=== PATIENT | male | born 1960 | race Native Hawaiian/Other Pacific Islander ===

== ENCOUNTER 2017-09-01 12:00 | Emergency (ER) | payer OTHER ==
[2017-09-01] MEDS ORDERED: TDAP Vaccine 0.5 mL Syr IM ONE (12:44)
[2017-09-01] MEDS ORDERED: Bacitracin Ointment 30 GM TUBE TOP STA (12:45)
[2017-09-01] MEDS ORDERED: Lidocaine 1% Inj (20ml) IJ STA (12:45)
[2017-09-01] MEDS ORDERED: Lidocaine 1% Inj (20ml) ONE (12:56)
--- NOTE | 2017-09-01 13:03 | ED PDOC ---
Arrival/HPI - General Chief Complaint: Abnormal Skin Integrity Time Seen by Provider: 09/01/17 12:44 Historian: Patient - History of Present Illness Narrative History of Present Illness (Text): 09/01/17 12:59 You were treated in the ED today for 3 cm laceration to inside of right proximal 3rd finger sustained from a knife otherwise without any fever, nausea/ vomiting/headache/dizziness/difficulty breathing/chest pain/abdomen pain/ numbness/tingling/loss of limb function/ loss of digit function/pain with urination or any other complaints. Time/Duration: Prior to Arrival Symptom Onset: Sudden Symptom Course: Unchanged Activities at Onset: Light Context: Home Past Medical History - Provider Review Nursing Documentation Reviewed: Yes - Infectious Disease Hx of Infectious Diseases: None - Cardiac Hx Cardiac Disorders: Yes (CAD STENTS ABN STRESS TEST) Hx Angina: Yes Hx Hypertension: Yes - Pulmonary Hx Respiratory Disorders: Yes Hx Asthma: Yes (CHILDHOOD) - Neurological Hx Neurological Disorder: No - HEENT Hx HEENT Disorder: No - Renal Hx Renal Disorder: No - Endocrine/Metabolic Hx Endocrine Disorders: No - Hematological/Oncological Hx Blood Disorders: No - Integumentary Hx Dermatological Disorder: No - Musculoskeletal/Rheumatological Hx Musculoskeletal Disorders: No - Gastrointestinal Hx Gastrointestinal Disorders: No - Genitourinary/Gynecological Hx Genitourinary Disorders: No - Psychiatric Hx Psychophysiologic Disorder: No Hx Substance Use: No - Surgical History Hx Cardiac Catheterization: Yes (2002) Hx Coronary Stent: Yes - Anesthesia Hx Anesthesia: Yes Hx Anesthesia Reactions: No Hx Malignant Hyperthermia: No Family/Social History - Physician Review Nursing Documentation Reviewed: Yes Family/Social History: No Known Family HX Smoking Status: Never Smoked Hx Alcohol Use: No Hx Substance Use: No Allergies/Home Meds Allergies/Adverse Reactions: Allergies No Known Allergies Allergy (Verified 01/06/15 14:22) Home Medications: Home Meds Medication Instructions Recorded Confirmed Amlodipine/Valsartan [Exforge 10 1 tab PO DAILY 01/06/15 01/06/15 mg-160 mg] Aspirin 81 mg PO DAILY 01/06/15 01/06/15 Metoprolol Succinate 100 mg PO DAILY 01/06/15 01/06/15 Simvastatin 20 mg PO DAILY 01/06/15 01/06/15 Review of Systems - Physician Review All systems were reviewed & negative as marked: Yes - Review of Systems Constitutional: Normal. absent: Fevers Eyes: Normal ENT: Normal Respiratory: Normal. absent: SOB Cardiovascular: Normal. absent: Chest Pain Gastrointestinal: Normal. absent: Abdominal Pain, Diarrhea, Nausea, Vomiting Genitourinary Male: Normal. absent: Dysuria Musculoskeletal: Normal Skin: Other (3 cm laceration to inside of right proximal finger to the muscle of 3rd digit) Neurological: Normal. absent: Headache, Dizziness Endocrine: Normal Hemo/Lymphatic: Normal Psychiatric: Normal Physical Exam Vital Signs Reviewed: Yes Vital Signs Temp Pulse Resp BP Pulse Ox 09/01/17 14:00 98.4 F 79 18 148/69 96 09/01/17 12:18 98.8 F 88 16 152/75 H 95 09/01/17 12:00 98.8 F 88 18 152/75 H 95 Temperature: Afebrile Blood Pressure: Hypertensive Pulse: Regular Respiratory Rate: Normal Appearance: Positive for: Well-Appearing, Non-Toxic, Comfortable Pain Distress: None Mental Status: Positive for: Alert and Oriented X 3 - Systems Exam Head: Present: Atraumatic, Normocephalic Pupils: Present: PERRL Extroacular Muscles: Present: EOMI Conjunctiva: Present: Normal Respiratory/Chest: Present: Clear to Auscultation, Good Air Exchange. No: Respiratory Distress, Accessory Muscle Use Cardiovascular: Present: Regular Rate and Rhythm, Normal S1, S2. No: Murmurs Abdomen: No: Tenderness, Distention, Peritoneal Signs Upper Extremity: Present: Normal Inspection, NORMAL PULSES, Other (3 cm laceration to inside of right proximal finger to the muscle of 3rd digit. Good, pink skin.). No: Cyanosis, Edema, Tenderness (no bony tenderness to 3rd digit) Lower Extremity: Present: Normal Inspection. No: Edema Neurological: Present: GCS=15, CN II-XII Intact, Speech Normal Skin: Present: Warm, Dry, Normal Color. No: Rashes Psychiatric: Present: Alert, Oriented x 3, Normal Insight, Normal Concentration Medical Decision Making ED Course and Treatment: 09/01/17 12:57 Impression: You were treated in the ED today for 3 cm laceration to inside of right proximal 3rd finger sustained from a glass but otherwise without any fever, nausea/vomiting/headache/dizziness/difficulty breathing/chest pain/abdomen pain/ numbness/tingling/loss of limb function/ loss of digit function/pain with urination or any other complaints. You were otherwise breathing easily, smiling at bedside, good strength/sensation, walking easily, clear lungs, no abdomen tenderness, right 3rd finger laceration medial aspect proximal finger laceration to muscle/4th finger shear type laceration distal fingertip adjacent to fingernail and neither with any bony tenderness and you had full range of motion/warm/sensation/good pink/good radial pulses, no fever temp 98.8, stable heart rate 88, stable breathing rate 16, excellent oxygen level 95% room air, elevated blood pressure 152/75 which we recommend repeat in 2-3 days primary care office to determine further treatment, tetanus booster given as you stated not current past 5 years you felt, right 3rd finger laceration medial aspect proximal finger laceration to muscle, antiseptically cleaned/wound explored without foreign body/suture skin closure/cleaned/bacitracin/splint and dressing placed. 4th finger shear type laceration distal fingertip adjacent to fingernail not amenable to suture as shear type and anti-septically cleaned, bacitracin, dressing, had a long discussion and you didn't want any xrays of the right hand/fingers at this time and cautioned for complications but you stated no pain/tenderness and no noted foreign body on injury and thus you wanted to go home. 1. Recommend keep wound dry for 2 days, then can open to air if dry, soap/water to wound daily but don't rub and place bacitracin ointment daily for infection control. 2. Recommend keflex as directed for infection control. 3. Recommend follow-up primary care 2 days to review symptoms, wound check and then 7-10 days for suture removal. 4. If any worsening pain, fever, chills, nausea, vomiting, difficulty breathing, numbness, loss of limb function , pain with urination or any medical condition then return to the ED. Plan: -- Bacitracin -- TDAP Vaccine -- Keflex -- Lidocaine 09/01/17 14:32 09/01/17 14:38 Reassessment Condition: Re-examined, Improved - Medication Orders Current Medication Orders: Discontinued Medications Bacitracin (Bacitracin) 0 gm TOP STAT STA Stop: 09/01/17 12:46 Last Admin: 09/01/17 13:20 Dose: 1 packet Cephalexin Monohydrate (Keflex) 500 mg PO STAT STA PRN Reason: Protocol Stop: 09/01/17 12:46 Last Admin: 09/01/17 13:20 Dose: 500 mg Lidocaine HCl (Lidocaine 1% (20ml)) 20 ml IJ STAT STA Stop: 09/01/17 12:46 Last Admin: 09/01/17 13:08 Dose: 1 bottle Tetanus/Reduced Diphtheria/Acell Pertussis (Boostrix Vaccine Inj) 0.5 ml IM .ONCE ONE Stop: 09/01/17 12:45 Last Admin: 09/01/17 13:18 Dose: 0.5 ml Immunization Registry Document 09/01/17 13:18 SRE (Rec: 09/01/17 13:19 SRE [id number]) Immunization Registry Consent Date 09/01/17 - Procedure PROCEDURE NOTE (Text): right 3rd finger laceration medial aspect proximal finger 4cm to muscle, irrigation nacl/betadine soaked/local anesthesia block/wound explored without foreign body/ethilon 4-0 x 5 interrupted skin closure, hemostasis, cleaned, bacitracin, splint and dressing placed. 4th finger shear type laceration distal fingertip adjacent to fingernail not amenable to suture as shear type and anti- septically cleaned, bacitracin, dressing. 09/01/17 14:29 - Scribe Statement The provider has reviewed the documentation as recorded by the Scribe Osei Dorsey. All medical record entries made by the Scribe were at my direction and personally dictated by me. I have reviewed the chart and agree that the record accurately reflects my personal performance of the history, physical exam, medical decision making, and the department course for this patient. I have also personally directed, reviewed, and agree with the discharge instructions and disposition. Disposition/Present on Arrival - Present on Arrival Any Indicators Present on Arrival: No History of DVT/PE: No History of Uncontrolled Diabetes: No Urinary Catheter: No History of Decub. Ulcer: No History Surgical Site Infection Following: None - Disposition Have Diagnosis and Disposition been Completed?: Yes Diagnosis: Finger laceration Disposition: HOME/ ROUTINE Disposition Time: 14:37 Patient Plan: Discharge Condition: IMPROVED Discharge Instructions (ExitCare): Laceration Repair With Stitches (DC) Additional Instructions: You were treated in the ED today for 3 cm laceration to inside of right proximal 3rd finger sustained from a glass but otherwise without any fever, nausea/vomiting/headache/dizziness/difficulty breathing/chest pain/abdomen pain/ numbness/tingling/loss of limb function/ loss of digit function/pain with urination or any other complaints. You were otherwise breathing easily, smiling at bedside, good strength/sensation, walking easily, clear lungs, no abdomen tenderness, right 3rd finger laceration medial aspect proximal finger laceration to muscle/4th finger shear type laceration distal fingertip adjacent to fingernail and neither with any bony tenderness and you had full range of motion/warm/sensation/good pink/good radial pulses, no fever temp 98.8, stable heart rate 88, stable breathing rate 16, excellent oxygen level 95% room air, elevated blood pressure 152/75 which we recommend repeat in 2-3 days primary care office to determine further treatment, tetanus booster given as you stated not current past 5 years you felt, right 3rd finger laceration medial aspect proximal finger laceration to muscle, antiseptically cleaned/wound explored without foreign body/suture skin closure/cleaned/bacitracin/splint and dressing placed. 4th finger shear type laceration distal fingertip adjacent to fingernail not amenable to suture as shear type and anti-septically cleaned, bacitracin, dressing, had a long discussion and you didn't want any xrays of the right hand/fingers at this time and cautioned for complications but you stated no pain/tenderness and no noted foreign body on injury and thus you wanted to go home. 1. Recommend keep wound dry for 2 days, then can open to air if dry, soap/water to wound daily but don't rub and place bacitracin ointment daily for infection control. 2. Recommend keflex as directed for infection control. 3. Recommend follow-up primary care 2 days to review symptoms, wound check and then 7-10 days for suture removal. 4. If any worsening pain, fever, chills, nausea, vomiting, difficulty breathing, numbness, loss of limb function , pain with urination or any medical condition then return to the ED. Prescriptions: Cephalexin [cephalexin] 250 mg PO Q6 3 Days #12 cap Forms: [facility] (Spanish), WORK NOTE
[2017-09-01 14:15] VITALS: RESP 18; O2SAT 96
[2017-09-01 14:50] VITALS: BP 140/70; PULSE 80; TEMP 98
== END 2017-09-01 14:49 | disposition home or self-care (01) ==
LOC: ED 12:00
DX: S61.212A Laceration without foreign body of right middle finger without damage to nail, initial encounter (principal); W26.0XXA Contact with knife, initial encounter; Z23 Encounter for immunization; I10 Essential (primary) hypertension